=== PATIENT | male | born 1930 | race Caucasian/White ===

== ENCOUNTER 2017-07-21 14:46 | Outpatient (CLI) | payer MEDICARE, OTHER ==
[~2017-07-21 14:46] MED LIST: Iopamidol 370 76% 100 ML VIAL ONE
--- NOTE | 2017-07-21 16:45 | CT ---
CT ANGIOGRAM OF THE NECK WITH CONTRAST: 07/21/17 HISTORY: 86-year-old male with left carotid stenosis (seen in referring physician's office ultrasound). TECHNIQUE: IV injection of 70 mL of Isovue 370. Arterial bolus chasing technique scan performed from top of aort ic arch to lower orbits. Coronal and sagittal 3D MIP reconstructions. FINDINGS: BRACHIOCEPHALIC: No stenosis. RIGHT SUBCLAVIAN: No stenosis. RIGHT COMMON CAROTID: Calcified plaque at distal RCCA, extending into the carotid bulb. No high grade stenosis. RIGHT INTERNAL CAROTID: Heavily calcified plaque causing mild stenosis at proximal SANTO, including carotid bulb. No plaque in the rest of the SANTO, including carotid siphon. LEFT COMMON CAROTID: Bovine origin. Mild plaque at origin. Mild plaque at distal LCCA. No high grade stenosis. LEFT INTERNAL CAROTID: Heavily calcified plaque at bulb extending 1 cm superiorly into the proximal LICA, where there is sev ere, 75 to 80% stenosis. The rest of the LICA is normal, including carotid siphon. RIGHT VERTEBRAL: Heavily calcified plaque at origin, causing moderate to severe stenosis. The rest of the right verteb ral artery is normal. Right vertebral is dominant. LEFT VERTEBRAL: Tortuous origin, difficult to evaluate. No definite high grade stenosis identified. The intracranial LVA terminates in PICA. LEFT SUBCLAVIAN: No high grade stenosis. BASILIC ARTERY: Normal caliber. BILATERAL POSTERIOR CEREBRAL ARTERIES AND SUPERIOR CEREBELLAR ARTERIES: Patent. There are bilaterally patent posterior communicating arteries. IMPRESSION: 1. Heavy atherosclerotic plaque in the bilateral carotid bulbs. 2. severe stenosis in the proximal left internal carotid artery. POS: [facility]
== END 2017-07-21 14:47 | disposition home or self-care (01) ==
LOC: CT 14:46
PROVIDERS: ATTEND Thoracic Surgery (Cardiothoracic Vascular Surgery)
DX: I65.23 Occlusion and stenosis of bilateral carotid arteries (principal)
CPT/HCPCS: 70498; 82565

== ENCOUNTER 2017-07-28 09:29 | Outpatient (CLI) | payer MEDICARE, OTHER ==
[2017-07-28 11:37] LABS: Hemoglobin 12.5 g/dL (14.0-18.0); Mean Corpuscular HGB CONC 34.1 g/dL (32.0-36.0); Mean Corpuscular Hemoglobin 32.1 pg (27.0-31.0); Platelet Count 209 thou/uL (130-400); RBC Distribution Width 11.9 % (11.5-14.5); White Blood Cell (WBC) Count 7.3 thou/uL (4.8-10.8)
[2017-07-28 12:00] LABS: Anion Gap 10 mmol/L (10-20); BUN (Urea Nitrogen) 22 mg/dL (8.4-25.7); Calc. Creatinine Clearance 0 mL/min (70-130); Calcium 9.9 mg/dL (7.8-10.44); Carbon Dioxide 26 mmol/L (23-31); Chloride 106 mmol/L (98-107); Estimated GFR-MDRD 68; Glucose 106 mg/dL (83-110); Potassium 4.1 mmol/L (3.5-5.1); Sodium 138 mmol/L (136-145)
== END 2017-07-28 09:30 | disposition home or self-care (01) ==
LOC: LABBT 09:29
PROVIDERS: ATTEND Thoracic Surgery (Cardiothoracic Vascular Surgery)
DX: Z01.818 Encounter for other preprocedural examination (principal)
CPT/HCPCS: 80048; 85027; 93005; 93010

== ENCOUNTER 2017-07-30 05:36 | Inpatient (IN) | payer MEDICARE, OTHER ==
[2017-07-28 09:48] VITALS: BMI 28.3
[2017-07-30] MEDS ORDERED: CEFAZOLIN/Water 2 GM/20 ML SYRINGE ONE (06:02)
[2017-07-30] MEDS ORDERED: Protamine Sulfate 50 MG/5 ML VIAL ONE (06:34)
[2017-07-30] MEDS ORDERED: Heparin 5,000 UNITS/ML VIAL ONE (06:34)
[2017-07-30] MEDS ORDERED: Fentanyl 100 MCG/2 ML VIAL ONE (06:52)
[2017-07-30] MEDS ORDERED: Ondansetron HCl/PF 4 MG/2 ML Vial ONE (09:11)
[2017-07-30] MEDS ORDERED: Ondansetron HCl/PF 4 MG/2 ML Vial IVP PRN (10:39)
[2017-07-30] MEDS ORDERED: hydrALAZINE 20 MG/ML VIAL SLOW IVP PRN (10:39)
[2017-07-30] MEDS ORDERED: Acetaminophen 325 MG TAB PO PRN (10:39)
[2017-07-30] MEDS ORDERED: Phenylephrine 10 MG/NS 250 ML 250 ML IVPB PRN (10:39)
[2017-07-30] MEDS ORDERED: Fentanyl 100 MCG/2 ML VIAL SLOW IVP PRN ×2 (10:39)
[2017-07-30] MEDS ORDERED: HYDROcodone/Acetaminophen 5/325 mg Tablet PO PRN ×2 (10:39)
[2017-07-30] MEDS ORDERED: Nitroglycerin 50 MG/250 ML BOT 250 ML IVPB PRN (10:39)
[2017-07-30] MEDS ORDERED: Non-Formulary Item 1 EACH (Cod Liver Oil [Cod Liver Oil] 1 EACH) PO SCH (10:39)
[2017-07-30] MEDS ORDERED: DOPamine 400 MG/D5W 250 ML 250 ML IVPB PRN (10:39)
--- NOTE | 2017-07-30 11:15 | OP ---
DATE OF PROCEDURE: 07/30/2017 PREOPERATIVE DIAGNOSIS: Asymptomatic left carotid stenosis. POSTOPERATIVE DIAGNOSIS: Asymptomatic left carotid stenosis. PROCEDURE: Left carotid endarterectomy with patch angioplasty. SURGEON: Nicholas Smith M.D. ANESTHESIA: General endotracheal. ESTIMATED BLOOD LOSS: Less than 50. PROCEDURE IN DETAIL: After consent was obtained, the patient was brought to the operating room and p laced in the supine position on the operating room table. Appropriate monitor was placed and general endotracheal anesthesia induced. Left neck was prepped and draped in usual sterile fashion. Skin i ncision was made dissection through the platysma obtained with electrocautery. Carotid sheath was th en entered. Two separate facial vein branches were divided between ties and clips. Common internal and external carotid arteries were carefully exposed. Vagus nerve was noted and protected throughout the procedure. Hypoglossal nerve was never encountered as the bifurcation was low in the neck. The patient was given 5000 units of heparin. After 3 minutes, internal, common, and external carotid ar teries were serially clamped. Incision was made on the common carotid artery extended through the bu lb on the internal carotid artery distal to the plaque. A 10-[place] shunt was placed and ante grade flow reestablished. Endarterectomy was performed with mosquito hemostats. Eversion endarterec slava was performed of the external carotid artery. Good tapered distal endpoint was obtained. Media l fibers were debrided. Artery was flushed with heparinized saline. Bovine pericardial patch was se wn in place with running 6-0 Prolene suture. Prior to completion of this patch suture line, the shun t was clamped and removed. Arteries were backbled and then flushed with heparinized saline. Patch s uture line was completed. Antegrade flow was reestablished up the external carotid artery for 10 sec onds followed by the internal carotid artery. Protamine was administered. Two separate sutures for hemostasis were placed in the heel of the graft. After adequate hemostasis had been obtained the wou nds were irrigated, closed in layers and Dermabond applied to the skin. The patient was awakened, ne urologically intact and transferred to the recovery room in stable condition. Needle, sponge, and in strument counts were all reported as correct at the end of the procedure.
[2017-07-30] MEDS ORDERED: Lisinopril/Hydrochlorothiazide 10 mg/12.5 mg Tablet PO SCH (11:30)
[2017-07-30] MEDS ORDERED: metFORMIN 500 MG TAB PO SCH (11:30)
[2017-07-30] MEDS ORDERED: Carvedilol 6.25 MG TAB PO SCH (11:30)
[2017-07-30] MEDS: Sodium Chloride 0.9% 1,000 ML IV SCH ×2 (12:01→21:04)
[2017-07-30] MEDS: CEFAZOLIN/Water 2 GM/20 ML SYRINGE SLOW IVP SCH ×2 (14:32→21:04)
[2017-07-30] MEDS ORDERED: Lidocaine 1% PF 5 ML VIAL ONE (16:34)
[2017-07-30] MEDS ORDERED: PHENYLEPHRINE-NS 100 MCG/ML 10 ML SYRINGE ONE (16:34)
[2017-07-30] MEDS ORDERED: PROPOFOL 200 MG/20 ML VIAL ONE (16:34)
[2017-07-30] MEDS ORDERED: Heparin 10,000 UNITS/ 10 ML VIAL ONE (16:34)
[2017-07-30] MEDS ORDERED: Dexamethasone 20 MG/5 ML VIAL ONE (16:34)
[2017-07-30] MEDS ORDERED: Glycopyrrolate 0.2 MG/ML 5 ML SYRINGE ONE (16:34)
[2017-07-30] MEDS: Insulin Regular 300 UNITS/3 ML VIAL SC PRN ×2 (17:24→21:11)
[2017-07-30] MEDS: metFORMIN 500 MG TAB PO SCH (17:26)
[2017-07-30] MEDS ORDERED: Atorvastatin Calcium 10 MG TAB PO SCH (21:00)
[2017-07-30] MEDS: Carvedilol 6.25 MG TAB PO SCH (21:03)
[2017-07-30 21:04] VITALS: BP 107/50
[2017-07-31] MEDS: CEFAZOLIN/Water 2 GM/20 ML SYRINGE SLOW IVP SCH (06:04)
[2017-07-31] MEDS: Sodium Chloride 0.9% 1,000 ML IV SCH (06:25)
--- NOTE | 2017-07-31 06:57 | DIS ---
DATE OF ADMISSION: 07/30/2017 DATE OF DISCHARGE: 07/31/2017 DIAGNOSIS: Asymptomatic left carotid stenosis. POSTOPERATIVE DIAGNOSIS: Asymptomatic left carotid stenosis. PROCEDURES: Left carotid endarterectomy with patch angioplasty. DESCRIPTION OF HOSPITAL STAY: Mr. Siddiqui was brought to the hospital for elective left carotid endar terectomy. He has done well. He is neurologically intact. His incision is clean and dry and healin g nicely. He is being discharged home with no medicine changes. Follow up is with me in 2 weeks.
[2017-07-31 08:17] VITALS: TEMP 101.2
[2017-07-31] MEDS: metFORMIN 500 MG TAB PO SCH (08:31)
[2017-07-31] MEDS: Carvedilol 6.25 MG TAB PO SCH (08:32)
[2017-07-31] MEDS ORDERED: Lisinopril/Hydrochlorothiazide 10 mg/12.5 mg Tablet PO SCH (09:00)
[2017-07-31] MEDS ORDERED: Calcium Carbonate + Vit D 1 TAB PO SCH (09:00)
== END 2017-07-31 08:44 | disposition home or self-care (01) | DRG 39 ==
LOC: SURG A 05:36 → CCU 10:44 → EDSTATUS 11:59
PROVIDERS: ADMIT Thoracic Surgery (Cardiothoracic Vascular Surgery); ATTEND Thoracic Surgery (Cardiothoracic Vascular Surgery)
PROC: 03CN0ZZ Extirpation of Matter from Left External Carotid Artery, Open Approach (ICD-10-PCS; principal; 2017-07-30)
PROC: 03UN0KZ Supplement Left External Carotid Artery with Nonautologous Tissue Substitute, Open Approach (ICD-10-PCS; 2017-07-30)
DX: I65.22 Occlusion and stenosis of left carotid artery (principal); E11.9 Type 2 diabetes mellitus without complications; E78.2 Mixed hyperlipidemia; I10 Essential (primary) hypertension; Z85.46 Personal history of malignant neoplasm of prostate; Z87.891 Personal history of nicotine dependence; Z79.84 Long term (current) use of oral hypoglycemic drugs; Z79.82 Long term (current) use of aspirin; Z79.899 Other long term (current) drug therapy; Z01.818 Encounter for other preprocedural examination
CPT/HCPCS: 36416; 80048; 85027; 93005; 93010; 94640; J1100; J1642; J1644; J2001; J2405; J2704; J2720; J3010; J7620